=== PATIENT | female | born 1945 | race Caucasian/White ===

== ENCOUNTER 2024-01-02 22:43 | Emergency (ER) | payer MEDICARE, OTHER, SELFPAY ==
[2024-01-02 22:49] VITALS: BP 209/101
--- NOTE | 2024-01-02 22:58 | ED.GENMED ---
History of Present Illness
<ABHINAV Telles - Last Filed: 01/03/24 02:04>
General
Chief Complaint: Skin Problem
Source: patient
Exam Limitations: none
Time Seen by Provider: 01/02/24 22:58
Nursing documentation reviewed up to this point in time: agreed with
History of Present Illness
History of Present Illness:
78 year old female presents for evaluation of rash. Pt endorses an intensely itchy rash that began approximately 24 hours ago after petting her friend's dog. Pt reports that the dog had been outdoors and walking through various plants prior to
petting it. Pt first noticed the rash on her hands and wrists and adds that it has since spread to her forearms, low back, abdomen, and bilateral lower extremities. Pt took one Benadryl at approximately 21:00 this evening with no relief reported.
She denies bleeding and discharge from the rash. No past history of pet allergies. No SOB, CP, dysphagia, angioedema, vision change, dizziness, N/V, or abdominal pain reported.
Past History
<ABHINAV Telles - Last Filed: 01/03/24 02:04>
Past History
ED Past Medical History: Other (Ocular migraines,) and Other (Takes Prevagin herbal remedy for memory enhancement.)
ED Past Surgical History: Gynecological (fibroid tumor removed.)
Social History
Tobacco: Non-smoker
Alcohol: None
Personal:
Living: with family
Employment: Employed (works at home)
Review of Systems
<ABHINAV Telles - Last Filed: 01/03/24 02:04>
Review of Systems
Allergies reviewed?: Yes
Constitutional: Reports no symptoms
EENT: Reports no symptoms
Respiratory: Reports no symptoms
Cardiac: Reports no symptoms
ABD/GI: Reports no symptoms
: Reports no symptoms
Musculoskeletal: Reports no symptoms
Skin: Reports itching and rash
Neurological: Reports no symptoms
Endocrine: Reports no symptoms
Hematologic/Lymphatic: Reports no symptoms
Psychiatric: Reports no symptoms
Phy Exam
<ABHINAV Telles - Last Filed: 01/03/24 02:04>
General Physical Exam
General Presentation: well appearing
General age: appears stated age
General Skin: warm
General Habitus: normal
General Mental: alert
General Hydration: appears well hydrated
Cardiovascular Exam
Cardiovascular Exam: regular rate/rhythm and no edema
Pulmonary Exam
Pulmonary Exam: lungs clear and no respiratory distress
Neurological Exam
Neurological Exam: alert and oriented x3
Skin Exam
Skin Exam: erythema and other (erythematous, patchy rash located on palms and dorsal hands BL, dorsal and volar wrists BL, left low back, and BL lower extremities )
Course
<ABHINAV Telles - Last Filed: 01/03/24 02:04>
Orders/Labs/Results
Orders:
Orders
01/02/24 23:51
Dexamethasone Pf [Decadron] 10 mg PO NOW STA
Vital Signs
Initial and Last Documented VS:
Initial Vital Signs
Temp Pulse Resp BP Pulse Ox
98.2 F 76 15 209/101 96
01/02/24 22:49 01/02/24 22:49 01/02/24 22:49 01/02/24 22:49 01/02/24 22:49
Last Documented Vital Signs
Temp Pulse Resp BP Pulse Ox
98.2 F 92 20 180/80 98
01/02/24 22:49 01/03/24 00:05 01/03/24 00:05 01/03/24 00:05 01/03/24 00:30
<Harpreet Arriola DO - Last Filed: 01/03/24 00:13>
Orders/Labs/Results
Orders:
Orders
01/02/24 23:51
Dexamethasone Pf [Decadron] 10 mg PO NOW STA
Vital Signs
Initial and Last Documented VS:
Initial Vital Signs
Temp Pulse Resp BP Pulse Ox
98.2 F 76 15 209/101 96
01/02/24 22:49 01/02/24 22:49 01/02/24 22:49 01/02/24 22:49 01/02/24 22:49
Last Documented Vital Signs
Temp Pulse Resp BP Pulse Ox
98.2 F 92 20 180/80 98
01/02/24 22:49 01/03/24 00:05 01/03/24 00:05 01/03/24 00:05 01/03/24 00:30
<ABHINAV Telles - Last Filed: 01/03/24 02:04>
MDM/Problems Addressed
Differential Diagnosis Includes:
poison manny dermatitis, atopic dermatitis, heat rash
<ABHINAV Telles - Last Filed: 01/03/24 02:04>
*Critical Care Note
Total Time (30-74mins, 75-104mins- exclusive of procedures): Not Applicable
<Harpreet Arriola DO - Last Filed: 01/03/24 00:13>
Update Note
Update Note:
Patient's blood pressure is elevated. Initial blood pressure was 209/101. Addressed this with patient and at this point she refuses medications. She states that she treats her blood pressure naturally. She does understand that a blood pressure
that is elevated could lead to further medical issues including but not limited to stroke, intracranial hemorrhage, MA etc. She still refuses medications. Repeat blood pressure is 190 systolic.
ED Attending Note
<ABHINAV Telles - Last Filed: 01/03/24 02:04>
-
Portions of this chart may have been created with voice recognition software.� Occasional wrong word or��sound alike� substitutions may have occurred due to the inherent limitations of voice recognition software.
<Harpreet Arriola, DO - Last Filed: 01/03/24 00:13>
ED Attending Note
Patient seen and examined by attending physician: Yes
I performed the substantive portion of visit, reviewed & personally made and approve the management plan that is documented in note by myself or PÉREZ.: Yes
ED Attending Note:
Pleasant 78-year-old female presents with rash that began approximate 24 hours prior to arrival. She states that it began after petting her friend's dog. The rash initially began on her hands and spread throughout her forearms low back abdomen and
lower extremities.
Discharge Plan
Departure
Patient Disposition: Home (Routine Discharge)
Date of Disposition: 01/03/24
Time of Disposition: 00:00
Patient with high blood pressure during this ER visit?: Yes
Discharge Problem:
Poison manny
Instructions: Poison manny, BLOOD PRESSURE
Prescriptions:
New
diphenhydramine HCl [Benadryl] 25 mg capsule
25 mg PO TID PRN (Reason: allergy symptoms) Qty: 14 0RF
No Action
Alpha Brain
2 tab PO DAILY
Referrals:
[facility] [Outside]
UNKNOWN - PT DOES,NOT KNOW [Unknown Provider] -
Activity Restrictions/Additional Instructions:
Your prescriptions were sent electronically to the pharmacy that you specified.
It was a pleasure meeting you and taking part in your care. We hope for your continued healing and wellness.
Please read discharge instructions in their entirety. However, they are for general education and may not describe your exact diagnosis at discharge. Information on your ER visit and medical conditions were discussed with you along with appropriate
follow up information...
If indicated, please take your medications as instructed and indicated on discharge paperwork.
Please schedule a follow up appointment as directed. Call to schedule an appointment
Please return to the emergency department with ANY change in, persisting, or worsening of symptoms. If any of your symptoms do not improve, or persist, or become more severe within 6-12 hours, please return to the emergency department for further
care.
Please return to the emergency department if you develop a headache, neck pain/stiffness, fever greater than 100.4F, chest pain, shortness of breath, persistent nausea, vomiting, slurred speech, difficulty walking, numbness/tingling, weakness, signs
of infection or any other symptoms that are worrisome to you.
If you have any questions or concerns please do not hesitate to call the Hospital at or E-mail me directly at [email or web address]
Interventions
Interventions:
*Risk Screen - Suicide Last Done: 01/02/24 22:49
*General Assessment Last Done: 01/02/24 22:49
*Neglect/Abuse Screening Last Done: 01/02/24 22:49
ED- Fall Risk Assessment Last Done: 01/02/24 23:17
*ED COVID-19 Vaccine History Last Done: 01/03/24 00:34
*Nursing Disposition Last Done: 01/03/24 00:30
ED-Skin Assessment Last Done: 01/02/24 23:17
Discharge Date and Time
Discharge Date/Time: 01/03/24 00:34
Print Language: BELGIAN
[2024-01-02 23:24] VITALS: BMI 20.5
[2024-01-02] MEDS: DECADRON 10 MG PO (23:57)
[2024-01-03] VITALS: BP 190/90
[2024-01-03 00:05] VITALS: BP 180/80
== END 2024-01-03 00:34 | disposition home or self-care (01) ==
LOC: EMR 22:43
PROVIDERS: EMERGENCY PHYSICIAN Student in an Organized Health Care Education/Training Program; FAMILY PHYSICIAN Internal Medicine
DX: L23.7 Allergic contact dermatitis due to plants, except food (principal)
CPT/HCPCS: 99282

== ENCOUNTER → 2024-04-30 14:57 | Outpatient (REF) | payer MEDICARE, OTHER, SELFPAY | LOC: HWRAD 14:57 | PROVIDERS: ATTENDING PHYSICIAN Internal Medicine | DX: E04.1 Nontoxic single thyroid nodule (principal) | CPT/HCPCS: 76536 ==

== ENCOUNTER → 2024-06-03 08:17 | Outpatient (REF) | payer MEDICARE, OTHER, SELFPAY ==
[2024-06-03 08:49] VITALS: BP 184/82; BP_SYST 75
[2024-06-03 09:43] VITALS: BP 166/83
== END ==
LOC: RADI 08:17
PROVIDERS: ATTENDING PHYSICIAN Nurse Practitioner
DX: E04.1 Nontoxic single thyroid nodule (principal)
CPT/HCPCS: 88173; 10005